=== PATIENT | female | born 1945 | race Caucasian/White ===

== ENCOUNTER 2017-10-13 10:41 | Day surgery (SDC) | payer MEDICARE ==
[~2017-10-13] VITALS: Ht 160 cm; Wt 73.5 kg
[~2017-10-13 10:41] MED LIST: ACYCLOVIR800 MG PO; ALENDRONATE70 MG PO; ALLERGY RELF10 M3 PO; ALPRAZOLAM0.25 M1 PO; AMOXICILLIN/CL875 MG OR; ANUCORT-HC25 MG TOP; ANUSOL HC TOP; ASPIRIN LOW DOS81 MG PO; BAYER ASPIRIN325 M1 PO; CALCIUM CIT OR; CITRACAL/D; CLOPIDOGREL75 MG PO; COCONUT OIL O1000 MG PO; COCONUT OIL PO; FISH OIL1000 MG PO; FLONASE 60 DOS0.05 %; FLONASE NASAL50 MCG; FLUARIX QUADRIV1 IN1 IM; FLUZONE1 M1 IM; LACTULOSE OR; LEVOTHYROXIN25 MC1 PO; LEVOXYL25 MCG PO; LOSARTAN POT100 MG PO; NEXIUM40 M1 PO; OMEPRAZOLE40 MG PO; OS-CAL 500500 M1 PO; PAROXETINE10 MG PO; PLAVIX75 MG PO; PNEUMOVAX 23 IM; PRAVASTATIN SOD40 MG PO; PRAVASTATIN20 MG PO; PRILOSEC40 MG PO; PROBIOTIC1 TAB PO; STOOL SOFTNR PO; TESSALON200 MG PO; TRAMADOL HCL50 MG PO; VERAMYST27.5 MCG; VITAMIN D3400 UNI2 PO; ZOCOR20 MG PO; ZYRTEC10 M1 PO
[2017-10-13 14:39] VITALS: BP 158/76
== END 2017-10-13 15:04 | disposition home or self-care (01) ==
LOC: ENDO 10:41
PROVIDERS: ATTEND Internal Medicine Gastroenterology
PROC: 0DJD8ZZ Inspection of Lower Intestinal Tract, Via Natural or Artificial Opening Endoscopic (ICD-10-PCS; principal; 2017-10-13)
PROC: 0DB48ZX Excision of Esophagogastric Junction, Via Natural or Artificial Opening Endoscopic, Diagnostic (ICD-10-PCS; 2017-10-13)
DX: K59.00 Constipation, unspecified (principal); K57.30 Diverticulosis of large intestine without perforation or abscess without bleeding; K64.4 Residual hemorrhoidal skin tags; K64.8 Other hemorrhoids; K21.9 Gastro-esophageal reflux disease without esophagitis; K29.50 Unspecified chronic gastritis without bleeding; K44.9 Diaphragmatic hernia without obstruction or gangrene; Z86.010 Personal history of colon polyps

== ENCOUNTER 2018-07-08 07:43 | Emergency (ER) | payer MEDICARE ==
[~2018-07-08] VITALS: Ht 160 cm; Wt 68.2 kg
[2018-07-08 08:31] LABS: HEMATOCRIT 40.3 % (37.0-47.0); IMMATURE GRANULOCYTES 0.2 % (0.0-5.0); MEAN CELL VOLUME 96.9 fL CALC (80.0-100.0); MEAN CORPUSCULAR HGB 31.3 pG CALC (26.0-32.0); MEAN CORPUSCULAR HGB CONC 32.3 g/L CALC (32.0-36.0); NEUT# 3.09 thou/uL (2.00-7.15); RED BLOOD COUNT 4.16 mill/uL (4.20-5.60); RED CELL DISTRI WIDTH 13.8 % (11.5-15.5)
[2018-07-08 08:51] LABS: ALBUMIN 4.3 g/dL (3.2-5.0); ALKALINE PHOSPHATASE 50 u/l (38-126); ANION GAP 13 (6-22 (CALC)); BILIRUBIN, TOTAL 0.7 mg/dL (0.0-1.4); BUN 13 mg/dL (8-23); BUN/CREATININE RATIO 17 (12-20 (CALC)); CARBON DIOXIDE 25 mmol/l (22-30); CHLORIDE 107 mmol/l (95-108); CREATININE 0.8 mg/dL (0.5-1.0); GFR > 60 ML/MIN (>=60 (CALC)); GFR FOR AFR.AMER. > 60 ML/MIN (>=60 (CALC)); SGOT/AST 27 u/l (9-36); SODIUM 141 mmol/l (137-146); TOTAL PROTEIN 6.9 g/dL (6.3-8.2)
[2018-07-08 09:03] LABS: MYOGLOBIN 41 ng/mL (0 - 62)
[2018-07-08 09:20] LABS: URINE BILIRUBIN - DIPSTICK NEGATIVE (NEGATIVE); URINE BLOOD DIPSTICK NEGATIVE (NEGATIVE); URINE COLOR YELLOW; URINE GLUCOSE - DIPSTICK NEGATIVE (NEGATIVE); URINE KETONE NEGATIVE (NEGATIVE); URINE LEUK ESTERASE NEGATIVE (NEGATIVE); URINE NITRITE - DIPSTICK NEGATIVE (Negative); URINE PH 5.5 (4.5-8.0); URINE PROTEIN - DIPSTICK NEGATIVE (NEG-TRACE); URINE SPECIFIC GRAVITY 1.025; URINE UROBILINOGEN - DIPSTICK 0.2 E.U./dL (0.2)
[2018-07-08] MEDS ORDERED: NAPROSYN500 MG PO (13:34)
[2018-07-08 13:36] VITALS: BP 156/51
== END 2018-07-08 13:36 | disposition home or self-care (01) ==
LOC: ED 07:43
PROVIDERS: Emergency Medicine
DX: R09.1 Pleurisy (principal); I10 Essential (primary) hypertension; Z86.73 Personal history of transient ischemic attack (TIA), and cerebral infarction without residual deficits; E78.00 Pure hypercholesterolemia, unspecified; R07.9 Chest pain, unspecified

== ENCOUNTER → 2018-07-30 | Outpatient (REF) | payer MEDICARE ==
[~2018-07-30] MED LIST changes: +NAPROSYN500 MG PO
== END | disposition home or self-care (01) ==
LOC: DI 14:08
PROVIDERS: ATTEND Orthopaedic Surgery
DX: S42.252D Displaced fracture of greater tuberosity of left humerus, subsequent encounter for fracture with routine healing (principal)

== ENCOUNTER 2020-08-05 09:48 | Emergency (ER) | payer MEDICARE ==
[~2020-08-05] VITALS: Ht 160 cm; Wt 68.0 kg
[2020-08-05] MEDS ORDERED: NEXIUM20 M1 PO (10:33)
[2020-08-05 10:45] VITALS: BP 158/70
== END 2020-08-05 10:50 | disposition home or self-care (01) ==
LOC: ED 09:48
DX: L76.21 Postprocedural hemorrhage of skin and subcutaneous tissue following a dermatologic procedure (principal); I10 Essential (primary) hypertension; Y83.8 Other surgical procedures as the cause of abnormal reaction of the patient, or of later complication, without mention of misadventure at the time of the procedure; Z86.73 Personal history of transient ischemic attack (TIA), and cerebral infarction without residual deficits; Z85.828 Personal history of other malignant neoplasm of skin; Z79.82 Long term (current) use of aspirin

== ENCOUNTER 2024-01-25 17:41 | Emergency (ER) | payer MEDICARE ==
[~2024-01-25] VITALS: Ht 160 cm; Wt 72.0 kg
[~2024-01-25 17:41] MED LIST changes: +NEXIUM20 M1 PO
[2024-01-25] MEDS ORDERED: AMOX/K CLAV875 M1 PO (17:49)
[2024-01-25] MEDS ORDERED: ZPAK PO (17:49)
[2024-01-25 17:50] VITALS: BP 184/79
[2024-01-25 18:00] VITALS: BP 148/74
[2024-01-25 18:30] VITALS: BP 156/65
[2024-01-25 19:00] VITALS: BP 176/71
[2024-01-25 19:30] VITALS: BP 170/71
== END 2024-01-25 19:42 | disposition home or self-care (01) ==
LOC: ED 17:41
DX: S61.412A Laceration without foreign body of left hand, initial encounter (principal); S61.411A Laceration without foreign body of right hand, initial encounter; I10 Essential (primary) hypertension; E78.00 Pure hypercholesterolemia, unspecified; W55.03XA Scratched by cat, initial encounter; Z86.73 Personal history of transient ischemic attack (TIA), and cerebral infarction without residual deficits

== ENCOUNTER 2024-06-04 15:31 | Emergency (ER) | payer MEDICARE ==
[~2024-06-04] VITALS: Ht 160 cm; Wt 70.0 kg
[~2024-06-04 15:31] MED LIST changes: +AMOX/K CLAV875 M1 PO; +ZPAK PO
[2024-06-04 15:59] VITALS: BP 173/69
== END 2024-06-04 16:11 | disposition home or self-care (01) ==
LOC: ED 15:31
DX: S81.801D Unspecified open wound, right lower leg, subsequent encounter (principal); I10 Essential (primary) hypertension; E78.00 Pure hypercholesterolemia, unspecified; X58.XXXD Exposure to other specified factors, subsequent encounter; Z86.73 Personal history of transient ischemic attack (TIA), and cerebral infarction without residual deficits